=== PATIENT | female | born 2000 | race Caucasian/White ===

== ENCOUNTER 2022-07-19 00:50 | Emergency (ER) | payer OTHER ==
[2022-07-19] MEDS ORDERED: Morphine 4 MG/ML VIAL ONE (03:11)
[2022-07-19] MEDS ORDERED: Ondansetron PF 4 MG/2 ML Vial ONE (03:11)
[2022-07-19 03:33] LABS: #Basophils 0.1 10x3/uL (0.0-0.2); #Eosinphils 0.1 10x3/uL (0.0-0.5); #Monocytes 0.9 10x3/uL (0.0-1.1); #Neutrophils 5.6 10x3/uL (1.5-8.4); %Basophils 0.9 % (0.0-2.0); %Eosinophils 0.7 % (0.0-6.0); %Lymphocytes 35.7 % (18.0-47.0); %Monocytes 8.4 % (0.0-10.0); %Neutrophils 53.9 % (40.0-75.0); Hemoglobin 13.8 g/dL (12.0-15.5); Mean Corpuscular HGB CONC 35.6 g/dL (32.0-36.0); Mean Corpuscular Hemoglobin 30.2 pg (27.0-33.0); Mean Corpuscular Volume 84.9 fl (81.6-98.3); Mean Platelet Volume 8.8 fl (7.4-10.4); Platelet Count 303 10x3/uL (150-450); RBC Distribution Width 11.5 % (11.5-14.5); Red Blood Cell (RBC) Count 4.57 10x6/uL (3.90-5.03); White Blood Cell (WBC) Count 10.4 10x3/uL (3.5-10.5)
[2022-07-19] MEDS ORDERED: Mag-Al Plus 1200 MG/1200 MG/120 MG/30 ML UDCUP ONE (03:35)
[2022-07-19] MEDS ORDERED: Lidocaine Viscous Sol 2% 15 ml UD Cup ONE (03:35)
[2022-07-19 03:40] LABS: BHCG - Serum Negative (NEGATIVE); Pregs Control Background? CLEAR/WHITE (CLR/WHITE); Pregs Control Bar Appear? YES (CONTROL BAR)
[2022-07-19 03:47] LABS: ALT (SGPT) 16 U/L (8-55); AST (SGOT) 37 U/L (5-30); Albumin 4.9 g/dL (3.5-5.0); Alkaline Phosphatase 64 U/L (40-100); Anion Gap 15 mmol/L (10-20); BUN (Urea Nitrogen) 9 mg/dL (8.4-21.0); Bilirubin, Total 0.6 mg/dL (0.2-1.2); Calc. Creatinine Clearance 0 mL/min (70-130); Calcium 9.9 mg/dL (7.8-10.44); Carbon Dioxide 21 mmol/L (22-29); Chloride 108 mmol/L (98-107); Estimated GFR 98; Glucose 90 mg/dL (70-105); Lipase 45 U/L (8-78); Potassium 3.2 mmol/L (3.5-5.1); Protein, Total 7.9 g/dL (6.0-8.3); Sodium 141 mmol/L (136-145)
[2022-07-19] MEDS ORDERED: Iopamidol 300 61% 100 ML VIAL FS ONE (16:09)
== END 2022-07-19 07:00 | disposition home or self-care (01) ==
LOC: CSHERS 00:50
DX: K52.9 Noninfective gastroenteritis and colitis, unspecified (principal); F17.290 Nicotine dependence, other tobacco product, uncomplicated
CPT/HCPCS: 71045; 74177; 80053; 83690; 84703; 85025; 96374; 96375; J2270; J2405; Q9967